=== PATIENT | female | born 1990 | race African-American/Black ===

== ENCOUNTER 2022-02-17 09:54 | Inpatient (IN) | payer MEDICARE ==
[~2022-02-17] VITALS: Ht 170.2 cm; Wt 127.9 kg
[2022-02-17] MEDS ORDERED: ONDANSETRON HCL INJ 2MG/ML 2ML 2 MG/ML VIAL IV STA (10:03)
[2022-02-17] MEDS ORDERED: Morphine 4mg Syringe 4 MG/ML INJ IV ONE (10:15)
[2022-02-17 10:22] LABS: BASOPHILS # (AUTO) 0.1 (0.0-0.1); BASOPHILS % 0.4 % (0.0-1.0); EOSINOPHILS # (AUTO) 0.2 (0.0-0.4); EOSINOPHILS % 1.6 % (0.0-6.0); HEMATOCRIT 33.7 % (34.2-44.1); HEMOGLOBIN 10.8 g/dL (12.0-16.0); LYMPHOCYTES # (AUTO) 2.3 (1.0-3.2); LYMPHOCYTES % 16.9 % (18.0-39.1); MEAN CORPUSCULAR HEMOGLOBIN 32.1 pg (28-32); MEAN CORPUSCULAR VOLUME 100.3 fL (81-99); MONOCYTES % 7.5 % (4.4-11.3); NEUTROPHILS # (AUTO) 10.2 (2.1-6.9); NEUTROPHILS % 73.1 % (38.7-80.0); PLATELET COUNT 290 x10e3/uL (140-360); RED BLOOD COUNT 3.36 x10e6/uL (3.6-5.1); RED CELL DISTRIBUTION WIDTH 12.7 % (11.7-14.4)
[2022-02-17 10:45] LABS: ALBUMIN 3.1 g/dL (3.5-5.0); ALBUMIN/GLOBULIN RATIO 0.6 (0.8-2.0); ANION GAP 19.4 mmol/L (8-16); CREATININE, SERUM 15.29 mg/dL (0.57-1.11); POTASSIUM 3.4 mmol/L (3.5-5.1)
[2022-02-17] MEDS ORDERED: IOPAMIDOL 370 MG/ML 100 ML INFUS..BTL INJ ONE (11:14)
[2022-02-17] MEDS ORDERED: Vancomycin IV 1 GM in SODIUM CHLORIDE 0.9% 250ML 250 ML IV ONE (11:15)
[2022-02-17] MEDS ORDERED: METRONIDAZOLE 500MG/NS 100ML 100 ML IV ONE (12:35)
[2022-02-17] MEDS ORDERED: PIPERACILLIN/TAZOBACTAM 3.375 GM VIAL ONE (12:35)
[2022-02-17] MEDS ORDERED: ONDANSETRON HCL INJ 2MG/ML 2ML 2 MG/ML VIAL IV PRN ×2 (13:00→14:30)
[2022-02-17] MEDS ORDERED: Morphine 4mg Syringe 4 MG/ML INJ IV PRN (13:00)
[2022-02-17] MEDS ORDERED: SODIUM CHLORIDE FLUSH 10 ML SYR INJ PRN (13:00)
[2022-02-17] MEDS ORDERED: ACETAMINOPHEN 325 MG TAB PO PRN ×2 (13:00→14:30)
[2022-02-17 13:38] LABS: CREATINE KINASE 153 IU/L (29-168)
[2022-02-17] MEDS ORDERED: SIMETHICONE 80 MG CHEW PO PRN (14:30)
[2022-02-17] MEDS ORDERED: DEXTROSE 50% SYRINGE 50 ML IV PRN (14:30)
[2022-02-17] MEDS ORDERED: HYDRALAZINE HCL 20 MG/ML VIAL IV PRN (14:30)
[2022-02-17] MEDS ORDERED: DIPHENHYDRAMINE HCL 25 MG CAP PO PRN (14:30)
[2022-02-17] MEDS ORDERED: DOCUSATE SODIUM 100 MG CAP PO PRN (14:30)
[2022-02-17] MEDS ORDERED: ALBUTEROL/IPRATROPIUM 3 ML NEB NEB PRN (14:30)
[2022-02-17] MEDS ORDERED: Morphine 2mg Syringe 2 MG/ML SYR IV PRN (14:30)
[2022-02-17] MEDS ORDERED: MELATONIN 5 MG TABLET PO PRN (14:30)
[2022-02-17] MEDS ORDERED: XANAX1 MG PO (15:30)
[2022-02-17] MEDS ORDERED: SEROQUEL50 MG PO (15:30)
[2022-02-17] MEDS ORDERED: CALCITRIOL0.5 MCG PO (15:30)
[2022-02-17] MEDS ORDERED: SENSIPAR30 MG PO (15:30)
[2022-02-17] MEDS ORDERED: AURYXIA210 MG PO (15:30)
[2022-02-17] MEDS ORDERED: TUMS ULTRA400 MG PO (15:30)
[2022-02-17] MEDS ORDERED: BUSPIRONE HCL15 MG PO (15:30)
[2022-02-17] MEDS: FERRIC CITRATE 630 MG PO SCH (16:30)
[2022-02-17 16:55] VITALS: BP 131/61
[2022-02-17] MEDS ORDERED: NON-FORMULARY MEDICATION (Buspirone Hcl 15 MG) PO SCH (17:00)
[2022-02-17] MEDS: BUSPIRONE HCL 5 MG TAB PO SCH (17:19)
[2022-02-17 17:47] VITALS: BP 131/61
[2022-02-17] MEDS: HYDROCODONE/APAP 5MG-325MG TAB PO PRN (19:55)
[2022-02-17 20:00] VITALS: BP 120/73
[2022-02-17 20:05] LABS: CREATINE KINASE 114 IU/L (29-168)
[2022-02-17] MEDS: CALCIUM CARBONATE 500 MG CHEWABLE TABS PO SCH (21:30)
[2022-02-17] MEDS: ALPRAZOLAM 1 MG TAB PO SCH (21:30)
[2022-02-17] MEDS: QUETIAPINE FUMARATE 25 MG TAB PO SCH (21:30)
[2022-02-17 21:32] LABS: BODY FLUID APPEARANCE CLOUDY; BODY FLUID COLOR STRAW; BODY FLUID TYPE PERITONEAL
[2022-02-17 21:33] LABS: RBC,BODY FLUID < 2000 cells/uL; WBC,BODY FLUID 17748 cells/uL
[2022-02-17 21:51] LABS: LYMPHOCYTES,BODY FLUID 3 %; MONO/MACROPHG,BODY FLUID 22 %; NEUTROPHILS,BODY FLUID 75 %
[2022-02-17] MEDS ORDERED: SODIUM CHLORIDE 0.9% 250ML 250 ML ONE (21:51)
[2022-02-18] VITALS (8 sets, daily range): BP systolic 94–121; BP diastolic 57–73
[2022-02-18] MEDS: HYDROCODONE/APAP 5MG-325MG TAB PO PRN ×2 (03:20→08:58)
[2022-02-18 06:12] LABS: BASOPHILS % 0.4 % (0.0-1.0); EOSINOPHILS # (AUTO) 0.2 (0.0-0.4); EOSINOPHILS % 3.1 % (0.0-6.0); HEMATOCRIT 31.9 % (34.2-44.1); LYMPHOCYTES % 27.6 % (18.0-39.1); MEAN CORPUSCULAR HEMOGLOBIN 31.8 pg (28-32); MEAN CORPUSCULAR HGB CONC 31.3 g/dL (31-35); MEAN CORPUSCULAR VOLUME 101.6 fL (81-99); MONOCYTES # (AUTO) 0.4 (0.2-0.8); MONOCYTES % 5.1 % (4.4-11.3); NEUTROPHILS # (AUTO) 4.7 (2.1-6.9); NEUTROPHILS % 63.3 % (38.7-80.0); PLATELET COUNT 254 x10e3/uL (140-360); RED BLOOD COUNT 3.14 x10e6/uL (3.6-5.1); RED CELL DISTRIBUTION WIDTH 12.7 % (11.7-14.4)
[2022-02-18 06:57] LABS: CREATINE KINASE 85 IU/L (29-168)
[2022-02-18 07:02] LABS: ALBUMIN 2.6 g/dL (3.5-5.0); ALBUMIN/GLOBULIN RATIO 0.6 (0.8-2.0); ANION GAP 17.9 mmol/L (8-16); CALCIUM 8.1 mg/dL (8.4-10.2); CREATININE, SERUM 14.57 mg/dL (0.57-1.11)
[2022-02-18 07:10] LABS: POTASSIUM 2.9 mmol/L (3.5-5.1)
[2022-02-18 07:19] LABS: MAGNESIUM 2.4 MG/DL (1.3-2.1); PHOSPHORUS 4.7 MG/DL (2.3-4.7)
[2022-02-18] MEDS: FERRIC CITRATE 630 MG PO SCH ×3 (07:30→16:30)
[2022-02-18 07:39] LABS: THYROID STIMULATING HORMONE 1.936 uIU/mL (0.350-4.940)
[2022-02-18] MEDS ORDERED: POTASSIUM CHLORIDE 20 MEQ TAB CR PO ONE (08:30)
[2022-02-18] MEDS: PANTOPRAZOLE SOD 40 MG TABEC PO SCH (08:58)
[2022-02-18] MEDS: BUSPIRONE HCL 5 MG TAB PO SCH ×2 (08:58→17:26)
[2022-02-18] MEDS: CINACALCET 30 MG TAB PO SCH (08:59)
[2022-02-18] MEDS: CALCITRIOL 0.25 MCG CAP PO SCH (08:59)
[2022-02-18] MEDS: HYDROCODONE/APAP 10MG-325MG TAB PO PRN ×2 (14:14→21:55)
[2022-02-18] MEDS ORDERED: Vancomycin IV 2 GM in SODIUM CHLORIDE 0.9% 250ML 250 ML IV PRN (14:15)
[2022-02-18] MEDS ORDERED: GENTAMICIN 120MG/NS 100ML 100 ML IV PRN (14:15)
[2022-02-18] MEDS: GENTAMICIN SULFATE 40 MG/ML 2 ML VIAL IV PRN (19:12)
[2022-02-18] MEDS: Vancomycin IV 1 GM VIAL IV PRN (19:12)
[2022-02-18 21:14] LABS: BODY FLUID TYPE PERITONEAL
[2022-02-18 21:15] LABS: BODY FLUID APPEARANCE CLEAR; BODY FLUID COLOR YELLOW
[2022-02-18] MEDS: QUETIAPINE FUMARATE 25 MG TAB PO SCH (21:22)
[2022-02-18] MEDS: ALPRAZOLAM 1 MG TAB PO SCH (21:22)
[2022-02-18] MEDS: CALCIUM CARBONATE 500 MG CHEWABLE TABS PO SCH (21:22)
[2022-02-18 21:24] LABS: RBC,BODY FLUID < 2000 cells/uL; WBC,BODY FLUID 873 cells/uL
[2022-02-18 21:58] LABS: LYMPHOCYTES,BODY FLUID 14 %; MONO/MACROPHG,BODY FLUID 27 %; NEUTROPHILS,BODY FLUID 56 %
[2022-02-18 21:59] LABS: OTHER CELLS,BODY FLUID 3 %
[2022-02-19] VITALS (7 sets, daily range): BP systolic 102–113; BP diastolic 48–65
[2022-02-19 06:15] LABS: BASOPHILS % 0.6 % (0.0-1.0); EOSINOPHILS # (AUTO) 0.3 (0.0-0.4); HEMATOCRIT 29.6 % (34.2-44.1); HEMOGLOBIN 9.4 g/dL (12.0-16.0); LYMPHOCYTES # (AUTO) 1.9 (1.0-3.2); LYMPHOCYTES % 35.2 % (18.0-39.1); MEAN CORPUSCULAR HEMOGLOBIN 31.8 pg (28-32); MEAN CORPUSCULAR HGB CONC 31.8 g/dL (31-35); MONOCYTES # (AUTO) 0.5 (0.2-0.8); MONOCYTES % 9.5 % (4.4-11.3); NEUTROPHILS # (AUTO) 2.7 (2.1-6.9); NEUTROPHILS % 49.3 % (38.7-80.0); PLATELET COUNT 244 x10e3/uL (140-360); RED BLOOD COUNT 2.96 x10e6/uL (3.6-5.1); RED CELL DISTRIBUTION WIDTH 12.5 % (11.7-14.4)
[2022-02-19 06:43] LABS: ALBUMIN 2.4 g/dL (3.5-5.0); ALBUMIN/GLOBULIN RATIO 0.6 (0.8-2.0); ANION GAP 17.3 mmol/L (8-16); CALCIUM 7.3 mg/dL (8.4-10.2); CREATININE, SERUM 14.35 mg/dL (0.57-1.11); MAGNESIUM 2.3 MG/DL (1.3-2.1); PHOSPHORUS 4.6 MG/DL (2.3-4.7); POTASSIUM 3.3 mmol/L (3.5-5.1)
[2022-02-19] MEDS: FERRIC CITRATE 630 MG PO SCH ×3 (07:30→16:30)
[2022-02-19] MEDS: CALCITRIOL 0.25 MCG CAP PO SCH (09:15)
[2022-02-19] MEDS: BUSPIRONE HCL 5 MG TAB PO SCH ×2 (09:15→17:34)
[2022-02-19] MEDS: CINACALCET 30 MG TAB PO SCH (09:15)
[2022-02-19] MEDS: PANTOPRAZOLE SOD 40 MG TABEC PO SCH (09:15)
[2022-02-19] MEDS: HYDROCODONE/APAP 10MG-325MG TAB PO PRN ×2 (10:32→17:35)
[2022-02-19] MEDS: ALPRAZOLAM 1 MG TAB PO SCH (20:38)
[2022-02-19] MEDS: QUETIAPINE FUMARATE 25 MG TAB PO SCH (20:38)
[2022-02-19] MEDS: CALCIUM CARBONATE 500 MG CHEWABLE TABS PO SCH (23:19)
[2022-02-20] VITALS (8 sets, daily range): BP systolic 87–137; BP diastolic 55–72
[2022-02-20] MEDS: HYDROCODONE/APAP 10MG-325MG TAB PO PRN ×3 (05:31→17:36)
[2022-02-20 06:54] LABS: BASOPHILS % 0.7 % (0.0-1.0); EOSINOPHILS # (AUTO) 0.3 (0.0-0.4); EOSINOPHILS % 5.1 % (0.0-6.0); HEMATOCRIT 29.9 % (34.2-44.1); HEMOGLOBIN 9.3 g/dL (12.0-16.0); LYMPHOCYTES # (AUTO) 1.8 (1.0-3.2); LYMPHOCYTES % 30.8 % (18.0-39.1); MEAN CORPUSCULAR HEMOGLOBIN 31.6 pg (28-32); MEAN CORPUSCULAR HGB CONC 31.1 g/dL (31-35); MEAN CORPUSCULAR VOLUME 101.7 fL (81-99); MONOCYTES # (AUTO) 0.6 (0.2-0.8); MONOCYTES % 10.3 % (4.4-11.3); NEUTROPHILS # (AUTO) 3.1 (2.1-6.9); NEUTROPHILS % 52.4 % (38.7-80.0); PLATELET COUNT 246 x10e3/uL (140-360); RED BLOOD COUNT 2.94 x10e6/uL (3.6-5.1); RED CELL DISTRIBUTION WIDTH 12.7 % (11.7-14.4)
[2022-02-20 07:23] LABS: ANION GAP 15.5 mmol/L (8-16); CALCIUM 7.3 mg/dL (8.4-10.2); CREATININE, SERUM 14.37 mg/dL (0.57-1.11); POTASSIUM 3.5 mmol/L (3.5-5.1)
[2022-02-20] MEDS: FERRIC CITRATE 630 MG PO SCH ×3 (07:30→16:30)
[2022-02-20] MEDS: PANTOPRAZOLE SOD 40 MG TABEC PO SCH (08:30)
[2022-02-20] MEDS: CALCITRIOL 0.25 MCG CAP PO SCH (08:31)
[2022-02-20] MEDS: CINACALCET 30 MG TAB PO SCH (08:31)
[2022-02-20] MEDS: BUSPIRONE HCL 5 MG TAB PO SCH ×2 (08:31→17:36)
[2022-02-20 19:45] LABS: BODY FLUID COLOR COLORLESS; BODY FLUID TYPE PERITONEAL
[2022-02-20 19:46] LABS: BODY FLUID APPEARANCE SL.CLOUDY
[2022-02-20 20:03] LABS: RBC,BODY FLUID < 2000 cells/uL; WBC,BODY FLUID 158 cells/uL
[2022-02-20] MEDS: CALCIUM CARBONATE 500 MG CHEWABLE TABS PO SCH (20:20)
[2022-02-20] MEDS: QUETIAPINE FUMARATE 25 MG TAB PO SCH (20:20)
[2022-02-20] MEDS: ALPRAZOLAM 1 MG TAB PO SCH (20:20)
[2022-02-20 20:57] LABS: LYMPHOCYTES,BODY FLUID 52 %; MONO/MACROPHG,BODY FLUID 9 %; NEUTROPHILS,BODY FLUID 39 %
[2022-02-21] VITALS: BP 105/67
[2022-02-21] MEDS: HYDROCODONE/APAP 10MG-325MG TAB PO PRN ×2 (02:59→10:47)
[2022-02-21 04:00] VITALS: BP 111/71
[2022-02-21] MEDS: FERRIC CITRATE 630 MG PO SCH ×3 (07:30→16:30)
[2022-02-21] MEDS: Vancomycin IV 1 GM VIAL IV PRN (07:37)
[2022-02-21] MEDS: GENTAMICIN SULFATE 40 MG/ML 2 ML VIAL IV PRN (07:37)
[2022-02-21 08:54] VITALS: BP 111/71
[2022-02-21 09:40] VITALS: BP 140/62
[2022-02-21] MEDS: CALCITRIOL 0.25 MCG CAP PO SCH (10:44)
[2022-02-21] MEDS: PANTOPRAZOLE SOD 40 MG TABEC PO SCH (10:45)
[2022-02-21] MEDS: CINACALCET 30 MG TAB PO SCH (10:45)
[2022-02-21] MEDS: BUSPIRONE HCL 5 MG TAB PO SCH (10:45)
[2022-02-21 13:02] VITALS: BP 140/61
== END 2022-02-21 17:15 | disposition home or self-care (01) | DRG 919 ==
LOC: ER 10:15 → ERHOLD 13:03 → MED/SURG2 14:50
PROVIDERS: ADMIT Internal Medicine; ATTEND Internal Medicine
PROC: 3E1M39Z Irrigation of Peritoneal Cavity using Dialysate, Percutaneous Approach (ICD-10-PCS; principal; 2022-02-17)
DX: T85.71XA Infection and inflammatory reaction due to peritoneal dialysis catheter, initial encounter (principal); N18.6 End stage renal disease; K65.2 Spontaneous bacterial peritonitis; I12.0 Hypertensive chronic kidney disease with stage 5 chronic kidney disease or end stage renal disease; Z68.41 Body mass index [BMI] 40.0-44.9, adult; Z99.2 Dependence on renal dialysis; D63.1 Anemia in chronic kidney disease; E21.3 Hyperparathyroidism, unspecified; J44.9 Chronic obstructive pulmonary disease, unspecified; F41.9 Anxiety disorder, unspecified; F32.A Depression, unspecified; E66.01 Morbid (severe) obesity due to excess calories; K52.9 Noninfective gastroenteritis and colitis, unspecified
CPT/HCPCS: 36415; 74177; 80048; 80053; 80202; 82040; 82550; 82553; 83036; 83605; 83690; 83735; 84100; 84443; 84484; 84702; 85025; 87040; 87070; 87205; 89051; 93005; 94799; 99284; J1580; J2270; J2405; J2543; J3370; J7050; Q9967; U0002

== ENCOUNTER 2022-07-19 18:54 | Inpatient (IN) | payer MEDICARE ==
[~2022-07-19] VITALS: Ht 170.2 cm; Wt 124.7 kg
[~2022-07-19 18:54] MED LIST: AURYXIA210 MG PO; BUSPIRONE HCL15 MG PO; CALCITRIOL0.5 MCG PO; SENSIPAR30 MG PO; SEROQUEL50 MG PO; TUMS ULTRA400 MG PO; XANAX1 MG PO
[2022-07-19 19:50] LABS: BASOPHILS % 0.6 % (0.0-1.0); EOSINOPHILS # (AUTO) 0.3 (0.0-0.4); EOSINOPHILS % 4.8 % (0.0-6.0); HEMATOCRIT 32.7 % (34.2-44.1); HEMOGLOBIN 10.1 g/dL (12.0-16.0); LYMPHOCYTES # (AUTO) 1.8 (1.0-3.2); MEAN CORPUSCULAR HEMOGLOBIN 30.9 pg (28-32); MEAN CORPUSCULAR HGB CONC 30.9 g/dL (31-35); MONOCYTES # (AUTO) 0.6 (0.2-0.8); MONOCYTES % 10.1 % (4.4-11.3); NEUTROPHILS # (AUTO) 3.5 (2.1-6.9); PLATELET COUNT 376 x10e3/uL (140-360); RED BLOOD COUNT 3.27 x10e6/uL (3.6-5.1); RED CELL DISTRIBUTION WIDTH 12.3 % (11.7-14.4)
[2022-07-19] MEDS: ONDANSETRON HCL INJ 2MG/ML 2ML 2 MG/ML VIAL IV PRN (19:56)
[2022-07-19] MEDS: SODIUM CHLORIDE 0.9% 1000ML 1,000 ML IV SCH (19:56)
[2022-07-19] MEDS: Morphine 4mg INJECTION 4 MG/ML INJ IV PRN ×2 (19:56→23:39)
[2022-07-19 20:08] LABS: ALBUMIN 2.7 g/dL (3.5-5.0); ALBUMIN/GLOBULIN RATIO 0.7 (0.8-2.0); ANION GAP 20.1 mmol/L (8-16); CREATININE, SERUM 12.41 mg/dL (0.57-1.11); POTASSIUM 4.1 mmol/L (3.5-5.1)
[2022-07-19 20:13] LABS: CREATINE KINASE 120 IU/L (29-168)
[2022-07-19 20:56] LABS: INFLUENZAE A&B ANTIGEN (RAPID) NEGATIVE (NEGATIVE)
[2022-07-19 20:57] LABS: RESPIRATORY SYNC. VIRUS POSITIVE (NEGATIVE)
[2022-07-19] MEDS ORDERED: Vancomycin IV 2 GM in SODIUM CHLORIDE 0.9% 250ML 250 ML IV ONE (21:30)
[2022-07-19] MEDS ORDERED: DOCUSATE SODIUM 100 MG CAP PO PRN (21:45)
[2022-07-19] MEDS ORDERED: ACETAMINOPHEN 325 MG TAB PO PRN (21:45)
[2022-07-19] MEDS ORDERED: FENTANYL CITRATE/PF 100MCG/2 ML INJ IV ONE (22:00)
[2022-07-19] MEDS ORDERED: FENTANYL CITRATE/PF 100MCG/2 ML INJ ONE (22:05)
[2022-07-19 22:06] LABS: CHOL/HDL RATIO 3.5 (3.0-3.6)
[2022-07-19 22:54] VITALS: BP 122/75
[2022-07-19 22:57] VITALS: BP 122/75
[2022-07-19 23:05] VITALS: BP 122/75
[2022-07-19] MEDS: QUETIAPINE FUMARATE 25 MG TAB PO SCH (23:31)
[2022-07-20] VITALS (7 sets, daily range): BP systolic 98–123; BP diastolic 52–89
[2022-07-20] MEDS: Morphine 4mg INJECTION 4 MG/ML INJ IV PRN ×5 (03:16→22:06)
[2022-07-20 06:37] LABS: BASOPHILS # (AUTO) 0.1 (0.0-0.1); BASOPHILS % 0.8 % (0.0-1.0); EOSINOPHILS # (AUTO) 0.3 (0.0-0.4); EOSINOPHILS % 5.4 % (0.0-6.0); HEMATOCRIT 28.8 % (34.2-44.1); HEMOGLOBIN 9.1 g/dL (12.0-16.0); LYMPHOCYTES # (AUTO) 2.5 (1.0-3.2); LYMPHOCYTES % 39.9 % (18.0-39.1); MEAN CORPUSCULAR HEMOGLOBIN 30.7 pg (28-32); MEAN CORPUSCULAR HGB CONC 31.6 g/dL (31-35); MEAN CORPUSCULAR VOLUME 97.3 fL (81-99); MONOCYTES # (AUTO) 0.7 (0.2-0.8); MONOCYTES % 11.4 % (4.4-11.3); NEUTROPHILS # (AUTO) 2.6 (2.1-6.9); PLATELET COUNT 329 x10e3/uL (140-360); RED BLOOD COUNT 2.96 x10e6/uL (3.6-5.1); RED CELL DISTRIBUTION WIDTH 12.5 % (11.7-14.4)
[2022-07-20 06:59] LABS: ALBUMIN 2.4 g/dL (3.5-5.0); ALBUMIN/GLOBULIN RATIO 0.7 (0.8-2.0); ANION GAP 15.8 mmol/L (8-16); CREATININE, SERUM 12.48 mg/dL (0.57-1.11); POTASSIUM 3.8 mmol/L (3.5-5.1)
[2022-07-20 07:13] LABS: CALCIUM 6.8 mg/dL (8.4-10.2)
[2022-07-20 07:31] LABS: CREATINE KINASE MB 0.6 ng/mL (0-5.0)
[2022-07-20] MEDS: SODIUM CHLORIDE 0.9% 1000ML 1,000 ML IV SCH (07:49)
[2022-07-20] MEDS: FERRIC CITRATE 630 MG PO SCH ×3 (08:50→16:38)
[2022-07-20] MEDS: BUSPIRONE HCL 5 MG TAB PO SCH ×2 (08:50→16:38)
[2022-07-20] MEDS ORDERED: CINACALCET 30 MG TAB PO SCH (09:00)
[2022-07-20] MEDS ORDERED: CALCITRIOL 0.25 MCG CAP PO SCH (09:30)
[2022-07-20] MEDS ORDERED: CALCIUM GLUCONATE 10% INJ 13.95 MEQ in SODIUM CHLORIDE 0.9% 100 ML IV ONE (10:30)
[2022-07-20] MEDS: CALCIUM CARBONATE 500 MG CHEWABLE TABS PO SCH ×2 (12:45→16:38)
[2022-07-20] MEDS: CHOLECALCIFEROL 1,000 UNIT TAB PO SCH (12:45)
[2022-07-20 14:46] LABS: CREATINE KINASE 86 IU/L (29-168)
[2022-07-20] MEDS ORDERED: SODIUM CHLORIDE 0.9% 1000ML 2,000 ML ONE (15:10)
[2022-07-20] MEDS: Vancomycin IV 1 GM in SODIUM CHLORIDE 0.9% 250ML 250 ML IV SCH (16:31)
[2022-07-20] MEDS ORDERED: SODIUM CHLORIDE 0.9% 1000ML 2,000 ML IV PRN (17:15)
[2022-07-20] MEDS ORDERED: ALBUMIN 25% 12.5GM 0.25 GM/ML BTL IV PRN (17:15)
[2022-07-20] MEDS ORDERED: CALCIUM CARBONATE 500 MG CHEWABLE TABS PO SCH (21:00)
[2022-07-20] MEDS: ALPRAZOLAM 1 MG TAB PO PRN (22:04)
[2022-07-21] VITALS (7 sets, daily range): BP systolic 107–131; BP diastolic 53–87
[2022-07-21] MEDS: Morphine 4mg INJECTION 4 MG/ML INJ IV PRN ×3 (04:26→20:08)
[2022-07-21] MEDS: ONDANSETRON HCL INJ 2MG/ML 2ML 2 MG/ML VIAL IV PRN ×2 (04:51→08:35)
[2022-07-21 04:53] LABS: BASOPHILS # (AUTO) 0.1 (0.0-0.1); BASOPHILS % 0.7 % (0.0-1.0); EOSINOPHILS # (AUTO) 0.4 (0.0-0.4); EOSINOPHILS % 5.1 % (0.0-6.0); LYMPHOCYTES # (AUTO) 2.4 (1.0-3.2); LYMPHOCYTES % 32.6 % (18.0-39.1); MEAN CORPUSCULAR HEMOGLOBIN 30.7 pg (28-32); MEAN CORPUSCULAR HGB CONC 31.3 g/dL (31-35); MEAN CORPUSCULAR VOLUME 98.2 fL (81-99); MONOCYTES # (AUTO) 0.7 (0.2-0.8); NEUTROPHILS # (AUTO) 3.7 (2.1-6.9); NEUTROPHILS % 51.1 % (38.7-80.0); PLATELET COUNT 336 x10e3/uL (140-360); RED BLOOD COUNT 3.26 x10e6/uL (3.6-5.1); RED CELL DISTRIBUTION WIDTH 12.6 % (11.7-14.4)
[2022-07-21 05:15] LABS: ALBUMIN 2.4 g/dL (3.5-5.0); ALBUMIN/GLOBULIN RATIO 0.7 (0.8-2.0); ANION GAP 16.4 mmol/L (8-16); CREATININE, SERUM 9.25 mg/dL (0.57-1.11); MAGNESIUM 2.2 MG/DL (1.3-2.1); PHOSPHORUS 4.1 MG/DL (2.3-4.7); POTASSIUM 4.4 mmol/L (3.5-5.1)
[2022-07-21] MEDS: FERRIC CITRATE 630 MG PO SCH ×3 (07:30→16:30)
[2022-07-21] MEDS: CALCIUM CARBONATE 500 MG CHEWABLE TABS PO SCH ×3 (08:00→17:00)
[2022-07-21 09:31] LABS: ANION GAP 14.3 mmol/L (8-16); CALCIUM 7.8 mg/dL (8.4-10.2); CREATININE, SERUM 9.04 mg/dL (0.57-1.11); POTASSIUM 4.3 mmol/L (3.5-5.1)
[2022-07-21] MEDS: ALPRAZOLAM 1 MG TAB PO PRN ×2 (09:33→21:33)
[2022-07-21] MEDS: BUSPIRONE HCL 5 MG TAB PO SCH ×2 (09:33→17:29)
[2022-07-21] MEDS ORDERED: PROPOFOL IV EMULSION 10 MG/ML 20 ML VIAL ONE (12:26)
[2022-07-21] MEDS ORDERED: LIDOCAINE HCL 2% LOCAL INJ 5 ML SDV VIAL INJ ONE (12:26)
[2022-07-21] MEDS ORDERED: DEXAMETHASONE SOD PHOS INJ 4 MG/ML SDV ONE (12:26)
[2022-07-21] MEDS ORDERED: ONDANSETRON HCL INJ 2MG/ML 2ML 2 MG/ML VIAL ONE (12:26)
[2022-07-21] MEDS ORDERED: POVIDONE IODINE 0.05% 0.05 % ML PO ONE (12:26)
[2022-07-21] MEDS ORDERED: SEVOFLURANE INHAL SOLN 250 ML PEN BTL ONE (12:26)
[2022-07-21] MEDS ORDERED: BUPIVACAINE 0.25% 30ML SDV ONE (15:09)
[2022-07-21] MEDS ORDERED: FENTANYL CITRATE/PF 100MCG/2 ML INJ ONE (15:37)
[2022-07-21] MEDS: CALCITRIOL 0.25 MCG CAP PO SCH (17:29)
[2022-07-21] MEDS: HYDROCODONE/APAP 5MG-325MG TAB PO PRN ×2 (17:30→23:02)
[2022-07-21] MEDS: CHOLECALCIFEROL 1,000 UNIT TAB PO SCH (17:30)
[2022-07-21] MEDS: QUETIAPINE FUMARATE 25 MG TAB PO SCH (21:33)
[2022-07-22] MEDS: Morphine 4mg INJECTION 4 MG/ML INJ IV PRN ×5 (00:11→23:07)
[2022-07-22] MEDS: HYDROCODONE/APAP 5MG-325MG TAB PO PRN ×2 (03:13→08:25)
[2022-07-22 04:59] VITALS: BP 139/88
[2022-07-22 04:59] LABS: BASOPHILS % 0.2 % (0.0-1.0); EOSINOPHILS % 0.1 % (0.0-6.0); HEMATOCRIT 31.4 % (34.2-44.1); HEMOGLOBIN 9.5 g/dL (12.0-16.0); LYMPHOCYTES # (AUTO) 1.2 (1.0-3.2); LYMPHOCYTES % 12.7 % (18.0-39.1); MEAN CORPUSCULAR HEMOGLOBIN 30.8 pg (28-32); MEAN CORPUSCULAR HGB CONC 30.3 g/dL (31-35); MEAN CORPUSCULAR VOLUME 101.9 fL (81-99); MONOCYTES # (AUTO) 0.6 (0.2-0.8); MONOCYTES % 6.7 % (4.4-11.3); NEUTROPHILS # (AUTO) 7.2 (2.1-6.9); NEUTROPHILS % 79.9 % (38.7-80.0); PLATELET COUNT 306 x10e3/uL (140-360); RED BLOOD COUNT 3.08 x10e6/uL (3.6-5.1); RED CELL DISTRIBUTION WIDTH 12.7 % (11.7-14.4)
[2022-07-22 05:25] LABS: ANION GAP 15.3 mmol/L (8-16); CALCIUM 7.8 mg/dL (8.4-10.2); CREATININE, SERUM 10.35 mg/dL (0.57-1.11); POTASSIUM 5.3 mmol/L (3.5-5.1)
[2022-07-22] MEDS: FERRIC CITRATE 630 MG PO SCH ×3 (07:30→16:30)
[2022-07-22 07:57] VITALS: BP 134/76
[2022-07-22] MEDS: BUSPIRONE HCL 5 MG TAB PO SCH ×2 (08:26→17:17)
[2022-07-22] MEDS: CALCIUM CARBONATE 500 MG CHEWABLE TABS PO SCH ×3 (08:27→17:17)
[2022-07-22] MEDS: CALCITRIOL 0.25 MCG CAP PO SCH (08:27)
[2022-07-22] MEDS ORDERED: LIDOCAINE/PRILOCAINE 2.5-2.5% KIT TOP PRN (09:00)
[2022-07-22 09:13] VITALS: BP 134/76
[2022-07-22] MEDS: Vancomycin IV 1 GM in SODIUM CHLORIDE 0.9% 250ML 250 ML IV SCH (10:30)
[2022-07-22 12:14] VITALS: BP 105/60
[2022-07-22 16:55] VITALS: BP 119/69
[2022-07-22] MEDS: CHOLECALCIFEROL 1,000 UNIT TAB PO SCH (17:22)
[2022-07-22 20:00] VITALS: BP 93/53
[2022-07-22] MEDS: QUETIAPINE FUMARATE 25 MG TAB PO SCH (20:53)
[2022-07-22] MEDS: ALPRAZOLAM 1 MG TAB PO PRN (21:05)
[2022-07-23] VITALS: BP 115/69
[2022-07-23 04:00] VITALS: BP 95/65
[2022-07-23 06:28] LABS: ANION GAP 13.3 mmol/L (8-16); CALCIUM 7.7 mg/dL (8.4-10.2); CREATININE, SERUM 7.23 mg/dL (0.57-1.11); POTASSIUM 4.3 mmol/L (3.5-5.1)
[2022-07-23 07:35] VITALS: BP 106/62
[2022-07-23] MEDS: CALCIUM CARBONATE 500 MG CHEWABLE TABS PO SCH ×3 (07:47→16:51)
[2022-07-23] MEDS: CHOLECALCIFEROL 1,000 UNIT TAB PO SCH (07:47)
[2022-07-23] MEDS: BUSPIRONE HCL 5 MG TAB PO SCH ×2 (07:47→17:00)
[2022-07-23] MEDS: CALCITRIOL 0.25 MCG CAP PO SCH (07:47)
[2022-07-23] MEDS: Morphine 4mg INJECTION 4 MG/ML INJ IV PRN ×3 (07:50→16:51)
[2022-07-23 11:32] VITALS: BP 127/72
[2022-07-23] MEDS: CALCIUM GLUC 1 G/50 ML NACL 50 ML IV SCH ×2 (12:24→15:09)
[2022-07-23] MEDS: ALPRAZOLAM 1 MG TAB PO PRN (12:32)
[2022-07-23] MEDS ORDERED: ONDANSETRON HCL 4 MG ORAL DISINTEGRATING TAB PO PRN (18:15)
[2022-07-26] MEDS ORDERED: Vancomycin IV 1 GM in SODIUM CHLORIDE 0.9% 250ML 250 ML IV SCH (14:00)
== END 2022-07-23 18:54 | disposition home or self-care (01) | DRG 907 ==
LOC: ER 19:06 → ERHOLD 19:30 → MED/SURG2 22:20
PROVIDERS: ADMIT Internal Medicine; ATTEND Internal Medicine
PROC: 5A1D70Z Performance of Urinary Filtration, Intermittent, Less than 6 Hours Per Day (ICD-10-PCS; 2022-07-20)
PROC: 0WPG03Z Removal of Infusion Device from Peritoneal Cavity, Open Approach (ICD-10-PCS; principal; 2022-07-21 14:30)
DX: T85.71XA Infection and inflammatory reaction due to peritoneal dialysis catheter, initial encounter (principal); K65.8 Other peritonitis; N18.6 End stage renal disease; I12.0 Hypertensive chronic kidney disease with stage 5 chronic kidney disease or end stage renal disease; Z68.41 Body mass index [BMI] 40.0-44.9, adult; N25.81 Secondary hyperparathyroidism of renal origin; Z16.39 Resistance to other specified antimicrobial drug; B97.4 Respiratory syncytial virus as the cause of diseases classified elsewhere; E83.51 Hypocalcemia; D63.8 Anemia in other chronic diseases classified elsewhere; E66.01 Morbid (severe) obesity due to excess calories; J22 Unspecified acute lower respiratory infection; F41.9 Anxiety disorder, unspecified; B95.7 Other staphylococcus as the cause of diseases classified elsewhere; Z99.2 Dependence on renal dialysis; Z82.49 Family history of ischemic heart disease and other diseases of the circulatory system; Z88.5 Allergy status to narcotic agent; Z20.822 Contact with and (suspected) exposure to COVID-19
CPT/HCPCS: 36415; 71045; 80048; 80053; 80061; 82550; 82553; 83036; 83735; 84100; 84484; 84702; 85025; 86704; 86706; 87040; 87340; 87400; 87420; 88300; 99284; J0610; J1100; J2001; J2270; J2405; J2543; J3010; J3370; J7030; J7050